=== PATIENT | female | born 1995 | race Hispanic/Latino ===

== ENCOUNTER → 2020-07-29 14:54 | Outpatient (CLI) | payer OTHER, SELFPAY ==
--- NOTE | 2020-07-29 14:56 | DI.RAD.S_ITS ---
PROCEDURE: XR FOOT LT MIN 3V INDICATIONS: left foot pain, plantar, poss stress Fx TECHNIQUE: 3 views of the foot were acquired. COMPARISON: None. FINDINGS: Bones: No fractures or dislocations. No periosteal reaction. No suspicious bony lesions. Soft tissues: No tibiotalar joint effusion. Achilles tendon appears normal. No radiopaque foreign body. IMPRESSION: No fracture identified. If clinically indicated follow-up three-phase bone scan or MRI could be performed to evaluate for subtle stress fracture. Dictated by: Steve Solano M.D. on 07/29/2020 at 15:54 Approved by: Steve Solano M.D. on 07/29/2020 at 15:56
== END ==
PROVIDERS: Referring Provider Student in an Organized Health Care Education/Training Program; Visit Provider Student in an Organized Health Care Education/Training Program
DX: M79.672 Pain in left foot (principal)
CPT/HCPCS: 73630

== ENCOUNTER → 2021-07-17 08:06 | Outpatient (CLI) | payer OTHER, SELFPAY ==
[2021-07-17 09:47] LABS: Testosterone 32.7 ng/dL (5.71-77.0)
[2021-07-21 15:18] LABS: Estrogen 154 pg/mL (.)
== END ==
PROVIDERS: PCP Family Medicine; Referring Provider Obstetrics & Gynecology; Visit Provider Obstetrics & Gynecology
DX: N91.5 Oligomenorrhea, unspecified (principal)
CPT/HCPCS: 36415; 82672; 84403

== ENCOUNTER → 2021-09-08 08:10 | Outpatient (CLI) | payer OTHER, SELFPAY | PROVIDERS: PCP Family Medicine; Referring Provider Obstetrics & Gynecology; Visit Provider Obstetrics & Gynecology | DX: N91.5 Oligomenorrhea, unspecified (principal) | CPT/HCPCS: 36415; 83498 ==

== ENCOUNTER → 2021-09-30 12:03 | Outpatient (CLI) | payer OTHER, SELFPAY ==
--- NOTE | 2021-09-30 12:03 | DI.RAD.S_ITS ---
PROCEDURE: HL HYSTEROSAPINGOGRAPHY INDICATIONS: Oligomenorrhea COMPARISON: None. FINDINGS: Patient had a documented negative test prior to the study. Following speculum insertion, a balloon-tip catheter was inserted into the cervical canal, and secured by inflating the balloon. Contrast was then injected into the endometrial canal. Uterus: The uterine cavity appears normal in size and morphology, without synechiae or masses. Fallopian tubes: The fallopian tubes without definite free spillage of contrast material. IMPRESSION: Partial opacification of the fallopian tubes without definite evidence of free spillage of the contrast material. Distal bilateral fallopian tube occlusion is not excluded by this study. Dictated by: Mary Gasca MD, PhD on 09/30/2021 at 16:43 Approved by: Mary Gasca MD, PhD on 09/30/2021 at 16:48
--- NOTE | 2021-09-30 14:13 | PM.PROC.1 ---
Procedures Date/Time Date of procedure: 09/30/21 Time of procedure: 13:00 General Procedure description: After informed consent was obtained and a test was negative, the patient was taken to the imaging suite. She was placed in the dorsal lithotomy position on the exam table and a sterile speculum inserted into the vagina. The cervix was visualized and prepped with betadine x3. The HSG catheter was carefully inserted through the cervix and the balloon inflated. The speculum was removed, and radioopaque dye was slowly inserted into the uterus while serial X rays were performed. The endometrial cavity filled and the balloon was visible and appropriately located. As the cavity became full, no dye was noted to spill through either fallopian tube and enough resistance was noted that the balloon was forced through the cervix. After discussion with the patient, the same procedure was performed, the catheter inserted, and the dye advanced. No dye was noted to pass through the fallopian tubes bilaterally and the HSG was stopped. The patient tolerated the procedure with some cramping. We discussed the results and follow up at bedside, and we discussed a referral to reproductive endocrinology and infertility. Complications: none
== END ==
PROVIDERS: PCP Family Medicine; Referring Provider Obstetrics & Gynecology; Visit Provider Obstetrics & Gynecology
DX: N91.4 Secondary oligomenorrhea (principal); N97.9 Female infertility, unspecified
CPT/HCPCS: 58340; 74740

== ENCOUNTER 2023-08-07 06:21 | Day surgery (SDC) | payer OTHER, BC, SELFPAY ==
[2023-08-02 09:34] VITALS: BMI 41.8
[2023-08-07] VITALS (10 sets, daily range): BP systolic 116–140; BP diastolic 51–99; PULSE 80–116; RESP 12–24; TEMP 36.3–36.8; O2SAT 92–100; BMI 41.8
--- NOTE | 2023-08-07 | DI.RAD.S_ITS ---
PROCEDURE: XR LUMBAR SPINE 2-3V INDICATIONS: LEFT L3-4 MICRODISCECTOMY, L4-5 LAMINECTOMY,RIGHT L5-S1 MICR TECHNIQUE: Multiple views of the lumbar spine were acquired. COMPARISON: [facility]., MR, MR LUMBAR SPINE WITHOUT CONTRAST, 07/20/2021, 16:53. [facility], CR, XR LUMBAR SPINE 2 OR 3 VIEWS, 03/30/2021, 9:02. [facility]., MR, MR LUMBAR SPINE WITHOUT CONTRAST, 06/06/2023, 9:21. [facility], CR, XR LUMBAR SPINE WITH OBLIQUES PLUS FLEXION EXTENSION, 12/06/2022, 9:54. FINDINGS: Multiple intraoperative fluoroscopy images demonstrate surgical scope at L3-L4 and L4-L5 levels. IMPRESSION: Fluoroscopy for lumbar spine surgery. Dictated by: Fabricio Ledesma M.D. on 08/07/2023 at 13:14 Approved by: Fabricio Ledesma M.D. on 08/07/2023 at 13:39
[2023-08-07] MEDS: ACETAMINOPHEN 325 MG TABLET 975 MG PO (07:14)
[2023-08-07] MEDS: GABAPENTIN 300 MG CAPSULE PO (07:15)
[2023-08-07] MEDS: LACTATED RINGERS 1,000 ML 42 ML IV (07:15)
--- NOTE | 2023-08-07 07:45 | PM.PREOP ---
Pre-operative Note Interval Note History & Physical reviewed/Exam performed by Physician: Yes Changes to H&P: No
--- NOTE | 2023-08-07 07:51 | SUR.PREOP ---
pt requests to void again. 6 minute delay
[2023-08-07] MEDS: CEFAZOLIN VIAL 3 GM in SODIUM CHLORIDE 0.9% 100 ML IV (08:00)
--- NOTE | 2023-08-07 08:17 | SUR.OPER ---
Prone on spine table, head in foam head support, padded chest and pelvic supports, gel pad at knees, lower legs supported by pillows; nipples, genitalia and toes free of pressure, arms secured on foam padded arm boards at <90 degrees abduction. Tape over blanket at thigh secured to table.
[2023-08-07] MEDS: BUPIVACAINE 0.25% (PF) 30 ML, EPINEPHrine 0.15 MG INJ (08:23)
--- NOTE | 2023-08-07 10:13 | PM.OP.1 ---
Operative Date/Time/Diagnoses Date of procedure: 08/07/23 Time of procedure: 07:50 Pre-op diagnosis: 1. L3-4, L5-S1 disc herniation 2. L4-5 spinal stenosis 3. Morbid obesity Post-op diagnosis: same Procedure & Clinicians Procedure: 1. L3-4 left microdiscectomy with hemilaminectomy 2. L5-S1 right microdiscectomy with hemilaminectomy through separate incision 3. L4-5 left hemilaminectomy and lateral recess decompression 4. Utilization of microsurgical technique and operating microscope Same procedure as scheduled: Yes Indications: Patient has been having chronic back pain and worsening lumbar radiculopathy. Patient's symptoms was initially worse on the left but currently has significant bilateral radicular symptoms as well as back pain. Patient was found large disc herniation L3-4 L5-S1 with a moderate central disc herniation causing spinal stenosis of L4-5. Patient failed multiple conservative management with worsening pain weakness and numbness in her lower extremity. Patient has been having difficulty performing activity of daily living. After discussing risks benefits of treatment options, patient elected proceed with surgery. Surgeon: Phill Gonzalez [employer] Director: Alison Herrera Click Yes if Unassisted: No Anesthesia Type: General Operative Notes Closure Type: primary Specimen(s): none sent Estimated Blood Loss (mL): 5 Blood products transfused: none Procedure in detail: Patient was seen in the preoperative area. Risks and benefits of the surgery was discussed with the patient. Informed consent was obtained from the patient and placed in the chart. Surgical site was marked. Patient was taken to the operative room. General anesthesia was administered. Prophylactic antibiotic was given to the patient less than 30 min before the incision was made. Patient was placed into a prone position on the Jose Luis table. Patient's back was then prepped and draped in the sterile fashion. Time-out was performed at this time. Using AP and lateral C-arm imaging the interval between L3-4, L4-5, L5-S1 was identified and marked on patient's back. Marking was made on patient's back and all 3 intervals in order to perform approach using a minimal invasive surgical portal. A 1 inch incision 1 in from midline was made on the right side. The fascia was incised in line with skin incision. Globus MARS retractors was placed inside the incision and docked onto the L5 lamina. Using microsurgical technique and operating microscope, a L5 hemilaminectomy was performed using a Kerrison rongeur. Liagamentum flavum was resected at the site of the laminotomy. Partial facetcomies was performed to further decompress the lateral recess at L5-S1 level. The disc space at L5-S1 was identified. Microdiscectomy was performed by incising the annulus with #11 blade. Microcurettes and pituitary was used to removed herniated disc fragments of disc from the epidural space. The disc was found to be partially calcified at the level of the annulus making resection difficult. There was also significant adhesion between the annulus and the thecal sac due to the chronicity of the pathology. At this time a separate skin incision was made over the L3-4 interval on the left side 2 inches from midline targeting the L3-4 disc space. The fascia was incised in line with skin incision. Globus MARS retractors was placed inside the incision and docked onto the L3 lamina. Using microsurgical technique and operating microscope, a L3 hemilaminectomy was performed using a Kerrison rongeur. Liagamentum flavum was resected at the site of the laminotomy. Partial facetcomies was performed to further decompress the lateral recess at L3-4 level. The disc space at L3-4 was identified. Microdiscectomy was performed by incising the annulus with #11 blade. Microcurettes and pituitary was used to removed herniated disc fragments of disc from the epidural space. The disc was found to be partially calcified at the level of the annulus making resection difficult. There was also significant adhesion between the annulus and the thecal sac due to the chronicity of the pathology. After the microdiskectomy was completed, the area medial lateral superior and inferior to the area of the microdiskectomy was inspected and explored using a micro curette. No other impinging structure was identified. The mars retractor was redirected over the L4-5 interval. Using microsurgical technique and operative microscope a hemilaminectomy was performed at L4-5 level on the left side. Kerrison rongeur a micro curette was used to free up the ligamentum flavum which was resected during the process of a hemilaminectomy for the further decompressing the epidural space and lateral recess. The hemilaminectomy was performed to address patient's spinal stenosis at L4-5 level. No disc material was removed at L4-5 level. The wound was then irrigated with sterile normal saline. 40 mg Depo-Medrol was placed into the epidural space. The deep fascia was closed with 1-0 Vicryl. The subcutaneous tissue was closed with 2-0 Vicryl. The skin was closed with skin tiera. Patient tolerated the procedure well. There were no complications. Patient was transferred recovery room in stable condition. Complications: none Post-operative Condition: stable Disposition: PACU Plan for aftercare: Discharge to home
[2023-08-07] MEDS: INSULIN REGULAR 100 UNIT/ML 3 ML VIAL 10 UNIT SUBCUT (10:44)
[2023-08-07] MEDS: OXYCODONE IR 5 MG TABLET PO (11:19)
== END 2023-08-07 12:06 | disposition home or self-care (01) ==
PROVIDERS: Referring Provider Orthopaedic Surgery Orthopaedic Surgery of the Spine; Visit Provider Orthopaedic Surgery Orthopaedic Surgery of the Spine
PROC: (CPT 63047; principal; 2023-08-07 07:45)
DX: M51.26 Other intervertebral disc displacement, lumbar region (principal); M48.062 Spinal stenosis, lumbar region with neurogenic claudication; M54.16 Radiculopathy, lumbar region; E66.01 Morbid (severe) obesity due to excess calories; Z68.41 Body mass index [BMI] 40.0-44.9, adult
CPT/HCPCS: 63047; 63035; 63030; 72100; 76000; 81025; 82962; J0171; J0690; J1100; J1170; J1885; J2250; J2405; J2704; J2920; J3010